=== PATIENT | female | born 1965 | race Caucasian/White ===

== ENCOUNTER 2016-04-29 09:25 | Inpatient (IN) | payer MEDICAID, OTHER ==
[~2016-04-29] VITALS: Ht 160 cm; Wt 77.1 kg
[2016-04-29 09:30] VITALS: BP 150/108; PULSE 104; RESP 20; TEMP 97; O2SAT 97
[2016-04-29] MEDS ORDERED: NACL 0.9% 1,000 ML IV ONE (09:49)
[2016-04-29] MEDS ORDERED: ONDANSETRON HCL 4 MG/2 ML VIAL IVP ONE ×2 (10:00→11:30)
[2016-04-29 10:15] LABS: BILIRUBIN,URINE NEGATIVE (NEGATIVE); BLOOD, URINE 1+ (NEGATIVE); CLARITY/URINE HAZY (CLEAR); COLOR,URINE YELLOW (YELLOW); GLUCOSE,URINE NEGATIVE (NEGATIVE); KETONES,URINE NEGATIVE (NEGATIVE); LEUKOCYTE ESTERASE ,URINE 3+ (NEGATIVE); NITRITE, URINE NEGATIVE (NEGATIVE); PROTEIN URINE TRACE (NEGATIVE); UROBILINOGEN,URINE 0.2 (0.2-1.0)
[2016-04-29 10:17] LABS: BASOPHILS % (AUTO) 0.2 % (0.0-2.0); EOSINOPHILS # (AUTO) 0.1 K/uL (0.0-0.4); EOSINOPHILS % (AUTO) 0.6 % (0.0-4.0); HEMATOCRIT 35.2 % (36-48); HEMOGLOBIN 11.6 g/dL (12.0-16.0); LYMPHOCYTES # (AUTO) 0.9 K/uL (1.0-5.5); LYMPHOCYTES % (AUTO) 9.8 % (20.5-51.5); MEAN CORPUSCULAR HEMOGLOBIN 27 pg (27-31); MEAN CORPUSCULAR HGB CONC 33 % (32-36); MEAN CORPUSCULAR VOLUME 82 fL (79.0-98.0); MONOCYTES # (AUTO) 0.5 K/uL (0.0-1.0); MONOCYTES % (AUTO) 5.4 % (1.7-9.3); NEUTROPHILS # (AUTO) 7.6 K/uL (1.8-7.7); PLATELET COUNT (AUTO) 195 K/uL (130-430); RED BLOOD CELL COUNT(AUTO) 4.31 MIL/uL (4.2-6.2); WHITE BLOOD COUNT (AUTO) 9.1 K/uL (4.8-10.8)
[2016-04-29 10:23] LABS: CREATININE 0.61 mg/dL (0.55-1.30); POTASSIUM 3.4 mmol/L (3.5-5.1)
[2016-04-29 10:27] LABS: PROTHROMBIN TIME 10.7 SECS (9.5-12.5)
[2016-04-29 10:28] LABS: TOTAL BILIRUBIN 0.4 mg/dL (0.0-1.0); TOTAL PROTEIN, SERUM 7.6 g/dL (6.4-8.3)
[2016-04-29 10:29] LABS: BACTERIA,URINE FEW /HPF (None Seen); WBC,URINE 20-50 /HPF (0-3)
[2016-04-29] MEDS ORDERED: MORPHINE 2 MG/ML INJ. SYRINGE IVP ONE (11:45)
[2016-04-29] MEDS ORDERED: LEVOFLOXACIN 500 MG/D5W 100 ML IV SCH (13:00)
[2016-04-29 18:22] VITALS: BP 107/67; PULSE 98; RESP 18; TEMP 98.5; O2SAT 97
[2016-04-29 18:40] VITALS: BP 135/72; PULSE 104; RESP 19; TEMP 98.2; O2SAT 99
[2016-04-29] MEDS ORDERED: ONDANSETRON HCL 4 MG/2 ML VIAL IVP PRN (19:15)
[2016-04-29] MEDS ORDERED: ACETAMINOPHEN 325 MG TABLET PO PRN (19:15)
[2016-04-29] MEDS ORDERED: POTASSIUM CHLORIDE 20 MEQ TAB.PRT.SR PO ONE (19:15)
[2016-04-29] MEDS ORDERED: FAMOTIDINE 20 MG TABLET PO ONE (19:15)
[2016-04-29] MEDS ORDERED: ZOLPIDEM TARTRATE 5 MG TABLET PO PRN (19:15)
[2016-04-29] MEDS ORDERED: MORPHINE 2 MG/ML INJ. SYRINGE IVP PRN (19:15)
[2016-04-29 20:00] VITALS: BP 117/70; PULSE 98; RESP 16; TEMP 98.4; O2SAT 99
[2016-04-29] MEDS: KCL 20 mEq in D5/0.45NS 1000mL 1,000 ML IV SCH (22:22)
[2016-04-29] MEDS: LACTOBACILLUS RHAMNOSUS GG 1 CAP CAPSULE PO SCH (22:23)
[2016-04-30 00:24] VITALS: BP 103/62; PULSE 89; RESP 16; TEMP 98.1; O2SAT 97
[2016-04-30 04:13] VITALS: BP 104/61; PULSE 86; RESP 16; TEMP 97.2; O2SAT 100
[2016-04-30] MEDS: KCL 20 mEq in D5/0.45NS 1000mL 1,000 ML IV SCH ×2 (05:45→08:43)
[2016-04-30 07:27] LABS: BASOPHILS % (AUTO) 0.2 % (0.0-2.0); EOSINOPHILS # (AUTO) 0.1 K/uL (0.0-0.4); EOSINOPHILS % (AUTO) 1.1 % (0.0-4.0); HEMATOCRIT 32.2 % (36-48); HEMOGLOBIN 10.7 g/dL (12.0-16.0); LYMPHOCYTES # (AUTO) 1.2 K/uL (1.0-5.5); LYMPHOCYTES % (AUTO) 16.8 % (20.5-51.5); MEAN CORPUSCULAR HEMOGLOBIN 27 pg (27-31); MEAN CORPUSCULAR HGB CONC 33 % (32-36); MEAN CORPUSCULAR VOLUME 82 fL (79.0-98.0); MONOCYTES # (AUTO) 0.6 K/uL (0.0-1.0); MONOCYTES % (AUTO) 8.3 % (1.7-9.3); NEUTROPHILS % (AUTO) 73.6 % (40.0-70.0); PLATELET COUNT (AUTO) 188 K/uL (130-430); RED BLOOD CELL COUNT(AUTO) 3.95 MIL/uL (4.2-6.2); RED CELL DISTRIBUTION WIDTH 11.7 % (9.0-15.0); WHITE BLOOD COUNT (AUTO) 6.9 K/uL (4.8-10.8)
[2016-04-30 07:49] LABS: CREATININE 0.71 mg/dL (0.55-1.30); POTASSIUM 4.4 mmol/L (3.5-5.1)
[2016-04-30 07:50] VITALS: BP 110/72; PULSE 84; RESP 18; TEMP 97.8; O2SAT 97
[2016-04-30] MEDS: LACTOBACILLUS RHAMNOSUS GG 1 CAP CAPSULE PO SCH (08:43)
[2016-04-30] MEDS ORDERED: FAMOTIDINE 20 MG TABLET PO SCH (09:00)
[2016-04-30] MEDS ORDERED: GENTAMICIN SULFATE 160 MG in NS 100 ML IV ONE (12:00)
[2016-04-30 12:06] VITALS: BP 124/74; PULSE 96; RESP 16; TEMP 97.6; O2SAT 98
[2016-04-30 16:05] VITALS: BP 127/74; PULSE 83; RESP 16; TEMP 98; O2SAT 99
[2016-04-30] MEDS ORDERED: LEVO500T20 PO (16:14)
[2016-04-30 16:49] VITALS: BP 124/74; PULSE 83; RESP 16; TEMP 98; O2SAT 99
[2016-04-30] MEDS ORDERED: GENTAMICIN 120 MG/ ISO-OSM 100 ML PREMIX IV ONE (23:00)
[2016-04-30] MEDS ORDERED: GENTAMICIN 120 MG/ ISO-OSM 100 ML PREMIX IV SCH (23:00)
== END 2016-04-30 16:30 | disposition home or self-care (01) | DRG 720 ==
LOC: SED 09:25 → SMU 11:13
PROVIDERS: ADMIT Internal Medicine; ATTEND Internal Medicine
DX: A41.50 Gram-negative sepsis, unspecified (principal); N10 Acute pyelonephritis; E87.6 Hypokalemia; Z90.710 Acquired absence of both cervix and uterus
CPT/HCPCS: 36415; 80048; 80053; 81000-TC; 83690-TC; 83735-TC; 85025; 85610-TC; 85730-TC; 86710; 87040-TC; 87086; 87186-TC; 96361; 96374; 96376; 99285; J1580; J1956; J2270; J2405; J7030

== ENCOUNTER 2016-05-26 08:25 | Emergency (ER) | payer MEDICAID ==
[~2016-05-26] VITALS: Ht 157.5 cm; Wt 77.1 kg
[~2016-05-26 08:25] MED LIST: LEVO500T20 PO
[2016-05-26 09:00] VITALS: BP 146/84; PULSE 80; RESP 16; O2SAT 99
--- NOTE | 2016-05-26 09:11 | NUR ---
AMBULATED TO BED 1
--- NOTE | 2016-05-26 09:20 | NUR ---
Patient presents to the emergency department to painful swollen bump to R side of the cheek by the ear, / pain since wednesday. took tylenol but it was ineffective. pt states it was possibly a pimple that was itching and started to get worse.
--- NOTE | 2016-05-26 09:45 | NUR ---
MARY Elaine at bedside examining patient.
[2016-05-26 10:30] VITALS: BP 134/81; PULSE 80; RESP 16; TEMP 97.6; O2SAT 99
--- NOTE | 2016-05-26 10:30 | NUR ---
Patient given written and verbal discharge instructions and verbalizes understanding. ER MD discussed with patient the results and treatment provided. Patient in stable condition. ID arm band removed. Rx of keflex and bactrim given. Patient educated on pain management and to follow up with PMD. Pain Scale 0/10. Opportunity for questions provided and answered.
== END 2016-05-26 10:00 | disposition home or self-care (01) ==
LOC: SED 08:25
DX: L70.0 Acne vulgaris (principal)
CPT/HCPCS: 99283

== ENCOUNTER 2018-09-10 06:28 | Emergency (ER) | payer MEDICAID, OTHER ==
[~2018-09-10] VITALS: Ht 165.1 cm; Wt 78.5 kg
[2018-09-10 06:30] VITALS: BP_SYST 151
[2018-09-10] MEDS ORDERED: IBUPROFEN 800 MG TABLET PO ONE (07:15)
[2018-09-10 07:49] VITALS: BP_SYST 134
== END 2018-09-10 07:45 | disposition home or self-care (01) ==
LOC: SED 06:28
DX: H73.011 Bullous myringitis, right ear (principal)
CPT/HCPCS: 99283

== ENCOUNTER 2022-03-27 09:28 | Emergency (ER) | payer MEDICAID, OTHER ==
[~2022-03-27] VITALS: Ht 157.5 cm; Wt 80.7 kg
[2022-03-27 10:03] VITALS: BP_SYST 176
--- NOTE | 2022-03-27 10:08 | NUR ---
Patient triaged and placed in waiting room. VSS and patient appears in no acute distress at this time. Accompanied by SELF, awaiting available bed, and MD notified of need for MSE.
--- NOTE | 2022-03-27 14:18 | NUR ---
ER DR. CARTER EXAMINING PT IN TRIAGE
[2022-03-27] MEDS ORDERED: HYDROcodone/ACETAMIN 10-325 MG TAB PO ONE (14:30)
[2022-03-27] MEDS ORDERED: KETOROLAC TROMETHAMINE 60 MG/2 ML VIAL IM ONE (14:30)
--- NOTE | 2022-03-27 15:08 | NUR ---
Medicated per MD Samuel order.
--- NOTE | 2022-03-27 15:12 | NUR ---
Patient presents to the emergency dept. with left lower back pain. skin intact, no trauma pt complains of years of generalized back pain. Pt is aaox3 NAD.
[2022-03-27] MEDS ORDERED: IBUP-1969 PO (15:15)
[2022-03-27] MEDS ORDERED: HYDR-3917 PO (15:15)
[2022-03-27 15:19] VITALS: BP_SYST 154
--- NOTE | 2022-03-27 15:19 | NUR ---
Patient given written and verbal discharge instructions and verbalizes understanding. ER MD discussed with patient the results and treatment provided. Patient in stable condition. ID arm band removed. Rx of NORCO AND IBUPROFEN given. Patient educated on pain management and to follow up with PMD. Pain Scale 0/10. Opportunity for questions provided and answered. Medication side effect fact sheet provided.
== END 2022-03-27 15:19 | disposition home or self-care (01) ==
LOC: SED 09:28
DX: M54.50 Low back pain, unspecified (principal); Z79.899 Other long term (current) drug therapy
CPT/HCPCS: 99283; 72100; 96372; J1885

== ENCOUNTER 2023-02-12 08:29 | Emergency (ER) | payer MEDICAID ==
[~2023-02-12] VITALS: Ht 157.5 cm; Wt 81.6 kg
[~2023-02-12 08:29] MED LIST changes: +HYDR-3917 PO; +IBUP-1969 PO
[2023-02-12 08:32] VITALS: BP_SYST 164; PULSE 66; RESP 18; TEMP 97.5; O2SAT 100
[2023-02-12 08:56] LABS: BILIRUBIN,URINE NEGATIVE (NEGATIVE); BLOOD, URINE 2+ (NEGATIVE); CLARITY/URINE CLEAR (CLEAR); COLOR,URINE YELLOW (YELLOW); GLUCOSE,URINE NEGATIVE (NEGATIVE); KETONES,URINE NEGATIVE (NEGATIVE); LEUKOCYTE ESTERASE ,URINE 2+ (NEGATIVE); NITRITE, URINE NEGATIVE (NEGATIVE); PH,URINE 6.5 (5.0-8.0); PROTEIN URINE NEGATIVE (NEGATIVE); UROBILINOGEN,URINE 0.2 (0.2-1.0)
[2023-02-12 09:15] LABS: BACTERIA,URINE RARE /HPF (None Seen)
[2023-02-12] MEDS ORDERED: PHEN-890 PO (09:38)
[2023-02-12] MEDS ORDERED: SULF1TAB48 PO (09:38)
[2023-02-12 09:45] VITALS: BP_SYST 176; PULSE 68; RESP 18; TEMP 98.4; O2SAT 99
== END 2023-02-12 09:44 | disposition home or self-care (01) ==
LOC: SED 08:29
DX: N39.0 Urinary tract infection, site not specified (principal); R10.30 Lower abdominal pain, unspecified; Z79.899 Other long term (current) drug therapy
CPT/HCPCS: 81000; 81001; 81015; 87086; 99283